=== PATIENT | male | born 1955 | race Caucasian/White ===

== ENCOUNTER 2017-06-03 09:35 | Outpatient (CLI) | payer OTHER ==
--- NOTE | 2017-06-03 17:49 | DIAGNOSTIC IMAGING REPORT ---
PROCEDURE: MR LOW EXT NONJOINT WO CON-LT INDICATION: LEFT FOREFOOT INJURY, PAIN TECHNIQUE: T1 and STIR sagittal, axial and coronal images of the foot. T1 and STIR axial-oblique images of the mid and distal foot. COMPARISON: Three-phase bone scan of the feet 07/27/2012. FINDINGS: There is subcutaneous fat atrophy on the plantar aspect of the third, fourth and fifth MTP joints associated with areas of low T1 increased CT signal. Findings consistent with adventitious bursitis. No evidence of an occult fracture. Mild first MTP joint degenerative changes. Normal cubic talar joints. Normal sinus tarsi. Normal plantar fascia and Achilles tendon. The posterior tibialis, flexor digitorum longus, flexor hallucis longus, peroneus brevis and peroneus longus tendons are intact. Normal extensor tendons. The tibiofibular, anterior and posterior talofibular, calcaneofibular and deltoid ligaments are intact. IMPRESSION: 1. 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 Mild first MTP joint degenerative changes
== END 2017-06-03 23:00 | disposition home or self-care (01) ==
LOC: MRI SRH 09:35
DX: M19.072 Primary osteoarthritis, left ankle and foot (principal)